=== PATIENT | female | born 1985 | race Caucasian/White ===

== ENCOUNTER → 2017-08-11 16:30 | Outpatient (CLI) | payer OTHER, SELFPAY ==
[2017-08-11 17:39] LABS: Absolute Neutrophil Count 6.7 X10^3/uL (2.0-7.7); Basophil# 0.01 X10^3/uL; Basophil% 0.1 % (0-1); Eosinophil# 0.12 X10^3/uL; Eosinophils% 1.3 % (0-5); Hematocrit 40.3 % (37-47); Hemoglobin 13.9 g/dl (12.0-15.0); Mean Corp Hgb Conc 34.5 g/gl (32-36); Mean Corpuscular Hgb 32.4 pg (27.0-32.0); Mean Corpuscular Volume 93.9 fL (81-99); Mean Platelet Vol. 11.6 fl (6.2-12.0); Monocyte# 0.78 X10^3/uL; Monocyte% 8.2 % (0-10); Neutrophil # 6.66 X10^3/uL (2.7-7.7); Neutrophil % 70.2 % (47-70); Platelet Count 167 K/mm3 (150-450); RBC Distribution Width CV 12.5 % (11.6-14.6); RBC Distribution Width SD 41.9 fl (35.1-43.9); Red Blood Count 4.29 M/mm3 (4.2-5.4); White Blood Count 9.5 K/mm3 (4.4-11.0)
[2017-08-11 17:40] LABS: POSITIVE COUNT NO; POSITIVE DIFFERENTIAL NO; POSITIVE MORPHOLOGY NO
[2017-08-11 18:08] LABS: ALB/GLOB Ratio 1.2 RATIO (0.9-2.4); AST(SGOT) 21 U/L (15-37); Alanine Aminotransfer ALT/SGPT 42 U/L (13-56); Albumin, Serum 4.2 g/dL (3.2-5.0); Alkaline Phosphatase 76 U/L (45-117); Anion Gap 6 (5-15); BUN 11 mg/dL (7-18); BUN/Creat Ratio 17.9 RATIO (10-20); Calcium,Total 9.4 mg/dL (8.5-10.1); Chloride 104 mmol/L (98-107); Creatinine, Serum 0.62 mg/dL (0.55-1.02); EST Glomerular Filtration Rate 119 mL/min (>60); Est Glom Filt Rate - Afr Amer 143 mL/min (>60); Globulin 3.5 g/dL (2.2-4.2); Glucose 70 mg/dL (74-106); Potassium 3.6 mmol/L (3.5-5.1); Protein, Total 7.7 g/dL (6.4-8.2); Sodium Level 138 mmol/L (136-145)
[2017-08-11 18:48] LABS: HIV - WCH Non-Reactive (Nonreactive); Rubella IgG 302.9 IU/mL
[2017-08-13 03:15] LABS: Rapid Plasmin Reagin (RPR) NONREACTIVE (NONREACTIVE)
[2017-08-14 04:10] LABS: HCV Quant. RNA PCR HCV Not Detected IU/mL (.)
[2017-08-15 11:38] LABS: HEPATITIS B SURFACE AG Negative (Negative)
== END ==
PROVIDERS: Visit Provider Obstetrics & Gynecology
DX: O09.90 Supervision of high risk pregnancy, unspecified, unspecified trimester (principal); Z3A.00 Weeks of gestation of pregnancy not specified
CPT/HCPCS: 80053; 85025; 86592; 86703; 86762; 86850; 86900; 87340; 87522

== ENCOUNTER → 2017-08-11 19:16 | Outpatient (CLI) | payer OTHER, SELFPAY ==
[2017-08-11 21:17] LABS: Chlamydia Trachomatis by PCR Negative (Negative); Neisserai gonorrhoeae by PCR Negative (Negative); Probe Check PASS; Sample Adequacy Control PASS; Specimen Processing Control PASS
== END ==
PROVIDERS: Visit Provider Obstetrics & Gynecology
DX: O09.90 Supervision of high risk pregnancy, unspecified, unspecified trimester (principal); Z3A.00 Weeks of gestation of pregnancy not specified
CPT/HCPCS: 87086; 87491; 87591

== ENCOUNTER → 2017-08-19 18:44 | Outpatient (CLI) | payer OTHER, SELFPAY ==
[2017-08-19 18:32] VITALS: BP 141/94; PULSE 65; RESP 16; TEMP 36.7; O2SAT 100; BMI 24.3
[2017-08-19 20:06] LABS: hCG Titer Quant., Serum 65172 mIU/mL (<9 non-preg)
== END ==
PROVIDERS: Nurse Practitioner Women's Health; Visit Provider Obstetrics & Gynecology
DX: O20.0 Threatened abortion (principal); Z3A.00 Weeks of gestation of pregnancy not specified
CPT/HCPCS: 36415; 84702

== ENCOUNTER → 2017-09-07 16:16 | Outpatient (CLI) | payer OTHER, SELFPAY ==
--- NOTE | 2017-09-07 16:17 | EKG12_ITS ---
Test Reason : HTN Blood Pressure : / mmHG Vent. Rate : 059 BPM Atrial Rate : 059 BPM P-R Int : 146 ms QRS Dur : 076 ms QT Int : 400 ms P-R-T Axes : 056 016 022 degrees QTc Int : 396 ms Sinus bradycardia with sinus arrhythmia Otherwise normal ECG Confirmed by LAZARA SALINAS, GADIEL ([id number]), science editor WHIT VINES ([id number]) on 09/10/2017 12:56:20 PM Referred By: Chiquita Vela Confirmed By:GADIEL HAILE MD
== END ==
PROVIDERS: Visit Provider Obstetrics & Gynecology
DX: O16.9 Unspecified maternal hypertension, unspecified trimester (principal)
CPT/HCPCS: 93005

== ENCOUNTER → 2017-09-07 16:40 | Outpatient (CLI) | payer OTHER, SELFPAY ==
[2017-09-07 17:07] LABS: Protein, Urine (Random) 11.9 mg/dL (<11.9); Protein:Creat Ratio 113 mg/g CRE (0-200)
== END ==
PROVIDERS: Visit Provider Obstetrics & Gynecology
DX: O16.9 Unspecified maternal hypertension, unspecified trimester (principal)
CPT/HCPCS: 82570; 84156

== ENCOUNTER → 2017-10-06 17:11 | Outpatient (CLI) | payer OTHER, SELFPAY ==
[2017-10-06 17:39] LABS: Protein, Urine (Random) < 6.0 mg/dL (<11.9); Protein:Creat Ratio 93 mg/g CRE (0-200)
== END ==
PROVIDERS: Visit Provider Obstetrics & Gynecology
DX: O16.9 Unspecified maternal hypertension, unspecified trimester (principal)
CPT/HCPCS: 82570; 84156

== ENCOUNTER → 2017-10-15 13:38 | Outpatient (CLI) | payer OTHER, SELFPAY | PROVIDERS: Visit Provider Obstetrics & Gynecology | DX: Z34.90 Encounter for supervision of normal pregnancy, unspecified, unspecified trimester (principal) ==

== ENCOUNTER → 2017-11-02 11:57 | Outpatient (CLI) | payer OTHER, SELFPAY ==
--- NOTE | 2017-11-02 12:01 | US_ITS ---
STUDY: SECOND AND THIRD TRIMESTER OBSTETRICAL ULTRASOUND REASON FOR EXAM: Female, 32 years old. Abdominal pain LMP: June 19, 2017 TECHNIQUE: Transabdominal PRIOR ULTRASOUND: None. FINDINGS: There is a single intrauterine fetus. The fetus is in a breech presentation. There is demonstrated cardiac activity with a heart rate of 134 bpm. There is a normal amniotic fluid volume. The largest amniotic fluid pocket measures 4.7 cm. The placenta is posterior in location and is not low lying. There are Grade 1 placental changes. The cervix measures 3.5 in length. The bilateral adnexal regions are normal. BIOMETRY: BPD: 4.43 cm: 19 weeks, 3 days HC: 16.82 cm: 19 weeks, 4 days AC: 14.74 cm: 20 weeks, 1 days FL: 3.13 cm: 19 weeks, 6 days CI: 77 FL/BPD: 71 FL/AC: 21 HC/AC: 1.14 age by current US: 19 weeks, 6 days. MANJU by current US: 03/23/2018. Estimated weight: 315 grams, +/- 46 grams, 69 %. Age by LMP: 19 weeks, 3 days. MANJU by LMP: 03/26/2018. ANATOMY: Gender: Female Cranium: Normal lateral ventricles. Normal choroid plexus. Normal cerebellum. Normal cisterna magna. Normal face, nose and lips. Chest: Normal 4-chamber heart. Abdomen/Pelvis: Normal diaphragm. Normal stomach. Normal abdominal wall. Normal cord insertion. Normal 3 vessel cord. Normal kidneys. Normal bladder. Spine: Normal cervical spine. Normal thoracic spine. Normal lumbar spine. Normal sacrum. Extremities: Normal bilateral upper extremities. Normal bilateral lower extremities. US/OB Anatomy Scan IMPRESSION: There is a single intrauterine fetus. The fetus is in a breech presentation. There is demonstrated cardiac activity with a heart rate of 134 bpm. There is a normal amniotic fluid volume. age by current US: 19 weeks, 6 days. MANJU by current US: 03/23/2018 Electronically Signed: Mateusz Barkley MD at 7:15 EDT , Service support ,
== END ==
PROVIDERS: Visit Provider Nurse Practitioner Women's Health
DX: R10.9 Unspecified abdominal pain (principal)
CPT/HCPCS: 76805

== ENCOUNTER → 2017-12-27 16:37 | Outpatient (CLI) | payer OTHER, SELFPAY ==
[2017-12-27 17:38] LABS: Absolute Lymphocyte Count 1.91 X10^3/ul (0.83-4.51); Absolute Neutrophil Count 9.8 X10^3/uL (2.0-7.7); Basophil# 0.01 X10^3/uL; Basophil% 0.1 % (0-1); Eosinophil# 0.17 X10^3/uL; Eosinophils% 1.3 % (0-5); Hematocrit 32.9 % (37-47); Hemoglobin 11.4 g/dl (12.0-15.0); Lymphocyte # 1.91 X10^3/ul (4.0); Lymphocyte % 14.9 % (19-41); Mean Corp Hgb Conc 34.7 g/gl (32-36); Mean Corpuscular Hgb 34.1 pg (27.0-32.0); Mean Corpuscular Volume 98.5 fL (81-99); Mean Platelet Vol. 10.8 fl (6.2-12.0); Monocyte# 0.84 X10^3/uL; Monocyte% 6.6 % (0-10); Neutrophil # 9.84 X10^3/uL (2.7-7.7); Neutrophil % 76.7 % (47-70); Platelet Count 129 K/mm3 (150-450); RBC Distribution Width CV 12.9 % (11.6-14.6); RBC Distribution Width SD 44.7 fl (35.1-43.9); Red Blood Count 3.34 M/mm3 (4.2-5.4); White Blood Count 12.8 K/mm3 (4.4-11.0)
[2017-12-27 17:44] LABS: POSITIVE COUNT NO; POSITIVE DIFFERENTIAL NO; POSITIVE MORPHOLOGY NO
[2017-12-27 17:45] LABS: Glucose Challenge Gest 1H 50g 115 mg/dL (70-140)
== END ==
PROVIDERS: Visit Provider Obstetrics & Gynecology
DX: O09.90 Supervision of high risk pregnancy, unspecified, unspecified trimester (principal); Z3A.00 Weeks of gestation of pregnancy not specified
CPT/HCPCS: 36415; 82950; 85025

== ENCOUNTER → 2018-01-05 13:43 | Outpatient (CLI) | payer OTHER, SELFPAY | PROVIDERS: Visit Provider Nurse Practitioner Women's Health | DX: O16.1 Unspecified maternal hypertension, first trimester (principal); Z3A.00 Weeks of gestation of pregnancy not specified | CPT/HCPCS: 76816 ==

== ENCOUNTER → 2018-02-11 14:42 | Outpatient (CLI) | payer OTHER, SELFPAY ==
--- NOTE | 2018-02-11 14:44 | US_ITS ---
STUDY: SECOND AND THIRD TRIMESTER OBSTETRICAL ULTRASOUND - LIMITED REASON FOR EXAM: Female, 32 years old. growth. LMP: 06/19/2017 PRIOR ULTRASOUND: 01/05/2018. TECHNIQUE: Transabdominal ultrasound evaluation was performed. FINDINGS: There is a single intrauterine fetus. The fetus is in a cephalic presentation. There is demonstrated cardiac activity with a heart rate of 132 bpm. There is a normal amniotic fluid volume. The largest amniotic fluid pocket measures 4.4 cm. The amniotic fluid index (JORGE) is 9.2 cm. The placenta is posterior in location and is not low lying. There are Grade 2 placental changes. The cervix measures 3.1 cm cm in length. BIOMETRY: BPD: 8.4: 34 weeks, 0 days HC: 30.6: 34 weeks, 1 days AC: 30.3: 34 weeks, 3 days FL: 6.6: 34 weeks, 0 days Age by LMP: 33 weeks, 6 days. MANJU by LMP: 03/26/2018. age by prior US: 34 weeks, 4 days. MANJU by prior US: 03/21/2018. age by current US: 34 weeks, 1 days. MANJU by current US: 03/24/2018. Estimated weight: 2357 grams, +/- 344 grams, 51 percentile. Gender: US/OB Limited With Biometrics IMPRESSION: Single live fetus in a vertex presentation. survey not performed on this exam. Placenta is grade 2 and is not low-lying. Cervix is closed. age by current US: 34 weeks, 1 days. MANJU by current US: 03/24/2018. Estimated weight: 2357 grams, +/- 344 grams, 51 percentile. Electronically Signed: Matthew Zhao MD at 16:05 EDT , Service support ,
== END ==
PROVIDERS: Visit Provider Nurse Practitioner Women's Health
DX: O09.90 Supervision of high risk pregnancy, unspecified, unspecified trimester (principal); O16.9 Unspecified maternal hypertension, unspecified trimester; Z36.9 Encounter for antenatal screening, unspecified; O99.340 Other mental disorders complicating pregnancy, unspecified trimester; F41.9 Anxiety disorder, unspecified; Z3A.00 Weeks of gestation of pregnancy not specified
CPT/HCPCS: 76816

== ENCOUNTER → 2018-02-21 18:26 | Outpatient (CLI) | payer OTHER, SELFPAY ==
[2018-02-21 20:30] LABS: Group B Strep DNA By PCR Negative (Negative); Internal Control PASS; Probe Check PASS; Specimen Processing Control PASS
== END ==
PROVIDERS: Referring Provider Obstetrics & Gynecology; Visit Provider Obstetrics & Gynecology
DX: O09.90 Supervision of high risk pregnancy, unspecified, unspecified trimester (principal)
CPT/HCPCS: 87081; 87653

== ENCOUNTER 2018-02-23 19:00 | Outpatient (CLI) | payer OTHER, SELFPAY ==
[2018-02-23 19:43] VITALS: BMI 26.3
--- NOTE | 2018-02-28 21:07 | OB.TRI.NOTE ---
- Problem List (1) Threatened premature labor Status: Acute History of Present Illness Date of Service: 02/23/18 Was patient seen by the physician?: No Reason For Visit: SPOTTING History of Present Illness: co spotting and some contractions Allergies amlodipine [From Norvasc] Allergy (Intermediate, Verified 02/28/18 16:13) legs swelling hctz Allergy (Intermediate, Uncoded 02/28/18 16:13) liver reaction - Pertinent Past Medical History Medical History: Past Medical History (Last Reviewed 02/28/18 @ 16:13 by Estela Mckeon) High blood pressure (Resolved) Surgical History: Past Surgical History (Last Reviewed 02/28/18 @ 16:13 by Estela Mckeon) History of foot surgery History of surgical removal of ganglion cyst History of wisdom tooth extraction NST - FHR Rate Baby A Baseline: 130 Variability:: Moderate Accelerations:: 15 x 15 Decelerations:: None NST Reactive:: Yes FHR Category:: Category I Uterine Activity:: irregular Impression/Plan Vaginal bleeding, false labor. No cervical change and no regular contractions. DC home labor precautions
== END 2018-02-23 21:15 | disposition home or self-care (01) ==
LOC: WPOUT 19:28 → WP 19:29
PROVIDERS: Referring Provider Obstetrics & Gynecology; Visit Provider Obstetrics & Gynecology
DX: O47.9 False labor, unspecified (principal); O46.90 Antepartum hemorrhage, unspecified, unspecified trimester; Z3A.00 Weeks of gestation of pregnancy not specified
CPT/HCPCS: 59025; 59050; 99218; G0378

== ENCOUNTER → 2018-03-04 14:48 | Outpatient (CLI) | payer OTHER, SELFPAY ==
--- NOTE | 2018-03-04 14:50 | US_ITS ---
STUDY: SECOND AND THIRD TRIMESTER OBSTETRICAL ULTRASOUND - LIMITED REASON FOR EXAM: Female, 32 years old. Growth LMP: June 19, 2017 PRIOR ULTRASOUND: 02/11/2018 TECHNIQUE: Transabdominal # of Images: 58 TECHNICAL QUALITY: Adequate. FINDINGS: There is a single intrauterine fetus. The fetus is in a cephalic presentation. There is demonstrated cardiac activity with a heart rate of 139 bpm. There is a normal amniotic fluid volume. The largest amniotic fluid pocket measures 5.14 cm. The amniotic fluid index (JORGE) is 11.03 cm. The placenta is fundal in location. There are Grade 2 placental changes. The cervix is not seen. The head is low lying. BIOMETRY: BPD: 8.62 cm: 34 weeks, 6 days HC: 32.7: 37 weeks, 1 days AC: 32.62: 36 weeks, 4 days FL: 7.34: 37 weeks, 4 days Age by LMP: 36 weeks, 6 days. MANJU by LMP: 03/26/2018. age by prior US: 37 weeks, 1 days. MANJU by prior US: 03/24/2018. age by current US: 36 weeks, 4 days. MANJU by current US: 03/28/2018. Estimated weight: 2995 grams, +/- 437 grams, 50 percentile. US/OB Limited With Biometrics IMPRESSION: Intrauterine gestation with sonographic age of 36 weeks 4 days. head is low lying. Cervix is not visible. Positive cardiac activity. Normal amniotic fluid volume. Normal placenta. Electronically Signed: Warren Bryan MD at 4:58 EDT Tel , Service support ,
== END ==
PROVIDERS: Referring Provider Obstetrics & Gynecology; Visit Provider Obstetrics & Gynecology
DX: O16.9 Unspecified maternal hypertension, unspecified trimester (principal); Z3A.00 Weeks of gestation of pregnancy not specified
CPT/HCPCS: 76816

== ENCOUNTER 2018-03-07 16:25 | Inpatient (IN) | payer OTHER, SELFPAY ==
[2018-03-07] MEDS: Lactated Ringers 1,000 ML 50 ML IV ×2 (16:50→20:11)
[2018-03-07 16:59] VITALS: BMI 26.6
[2018-03-07 17:05] LABS: Hematocrit 35.1 % (37-47); Hemoglobin 11.8 g/dl (12.0-15.0); Mean Corp Hgb Conc 33.6 g/gl (32-36); Mean Platelet Vol. 11.6 fl (6.2-12.0); Platelet Count 149 K/mm3 (150-450); RBC Distribution Width CV 13.5 % (11.6-14.6); RBC Distribution Width SD 48.4 fl (35.1-43.9); Red Blood Count 3.58 M/mm3 (4.2-5.4); White Blood Count 10.9 K/mm3 (4.4-11.0)
[2018-03-07 17:24] LABS: Scan Indicated on CBC? Y/N NO
[2018-03-07] MEDS: Oxytocin 30 units/NS 500 ml 30 UNITS/500 ML IV.SOLN IV (17:30)
[2018-03-07] MEDS: Mag Hydrox/Al Hydrox/Simeth 30 ML UDC PO (19:28)
--- NOTE | 2018-03-08 00:26 | HP.PCM_ITS ---
- Problem List (1) Oligohydramnios Status: Acute (2) Status: Acute Qualifiers: Comment: sequential screen negative. carrier screening declined. anatomy scan normal. growth us ordered 36 weeks. (3) Anxiety during Status: Acute Comment: celexa, encouraged counseling (4) Hypertension affecting Status: Acute Qualifiers: Comment: baseline labs/ekg nl, baby asa at 12 weeks, growth q4 after 28 wks, weekly nst/madhu 32 weeks on, deliver 38 (5) Supervision of high-risk Status: Acute Qualifiers: Comment: PRR MANJU 03/26/18 Girl Viviane :Debi History Date of Admission: 03/07/18 Final MANJU: 03/26/18 Gestational age: 37 Weeks and 3 Days History of this : This is a 32 year-old, , at 37 weeks gestational age presents for IOL oligohydramnios. she has had a complicated by chtn, and then today her fluid level was found to be 5.5 cm in the office. she denies any lof, vb and admits good fm with no regular ctx. Medical History: Medical History (Last Reviewed 03/07/18 @ 15:25 by Gini Greenwood) High blood pressure (Resolved) I10 Surgical History: Surgical History (Last Reviewed 03/07/18 @ 15:25 by Gini Greenwood) History of foot surgery Z98.890 History of surgical removal of ganglion cyst Z98.890 History of wisdom tooth extraction K08.499 Allergies amlodipine [From Norvasc] Allergy (Intermediate, Verified 03/07/18 18:46) legs swelling hctz Allergy (Intermediate, Uncoded 02/28/18 16:13) liver reaction Home Medications: Home Medications nifedipine ER 90 mg tablet,extended release 24 hr 90 mg PO QDAY 08/11/17 vitamin,calcium,jzfpbaqy-qadl-gnflt acid tablet 1 tab PO QDAY 08/11/17 aspirin 81 mg tablet,delayed release 81 mg PO QDAY 11/02/17 Citalopram [Celexa] 20 mg PO QDAY 03/07/18 Smoking Status: Never smoker Alcohol: None Number of Fetus(es): 1 Heart Tracins moderate variability reactive no decels cat I TOCO Analysis: no regular prior to IOL, now 2-4 minutes, coupling History Past Pregnancies: Past Pregnancies Delivery Date Name GA/Weeks Outcome Route Weight Infant Gender Labor Length Anesthesia Delivery Location Provider FOB Labs: Mom's Labs & Results 03/07/18 03/07/18 16:50 16:50 WBC 10.9 RBC 3.58 L Hgb 11.8 L Hct 35.1 L MCV 98.0 MCH 33.0 H MCHC 33.6 RDW 13.5 RDW Differential 48.4 H Plt Count 149 L MPV 11.6 Blood Type AB POSITIVE Antibody Screen NEGATIVE Course Did the patient receive Yes care? Labs Blood Type: AB RH: POSITIVE RPR/VDRL/Syphilis Nonreactive Rubella status Immune HbSAg Negative Date Done: 08/11/17 Chlamydia Negative Gonorrhea Negative HIV/AIDS Non-Reactive Group B Strep: Negative Current Obstetrical History Gestational Diabetes No Incompetent Cervix No Infertility No IUGR No Macrosomia No Hypertension/Pre-eclampsia Yes Placenta Previa/Abruption No PTL/PROM No Uterine anomaly No Oligohydramnios Yes Polyhydramnios No Multiple gestation No Past Medical History Asthma No Diabetes No Hypertension Yes Heart disease No Mitral valve prolapse No Neurologic/Seizure disorder/ No Migraines Kidney disease No Liver disease No Varicosities No Clotting disorders/Hx of DVT No Thyroid Dysfunction No Other medical diseases No Psychiatric disorders Yes: ANXIETY Major trauma No Abnormal PAP smear No Sleep apnea No Mammogram in the last 2 years No Medications Taken During Dose/Freq.: [celexA] 20mg daily Dose/Freq.: [procardia] 90mg daily Last Date/Time of Medication 03/07 0800 Taken: [celexA] Last Date/Time of Medication 03/07/18 0800 Taken: [procardia] Reason for taking medication [ anxiety celexA] Reason for taking medication [ htn procardia] Social History Marital Status: Alleged father debi Oconnor Smoking No Smoking Status Never smoker Expected Delivery Method: Spontaneous Vaginal Review of Systems Constitutional: Denies: Fever, Malaise Eyes: Denies: Blurred vision, Vision Change HEENT: Denies: Head Aches, Visual Changes Cardiovascular: Denies: Chest Pain, Palpitations Respiratory: Denies: Cough, Shortness of Breath, Wheezing Gastrointestinal: Denies: Abdominal Pain, Diarrhea, Nausea, Vomiting Genitourinary: Denies: Dysuria, Hematuria Musculoskeletal: Denies: Joint Pain, Muscle pain Skin: Denies: Lesions, Rash Neurological: Denies: Blurred vision, Focal weakness, Headaches Psychiatric: Denies: Anxiety, Depression Endocrine: Denies: Heat/ Cold Intolerance Hematologic/ Lymphatic: Denies: Easy Bruising, Easy Bleeding Physical Exam General: Alert, Cooperative, No apparent distress HEENT: Atraumatic, Normocephalic. Negative for: Thyromegaly, Lymphadenopathy Cardiovascular: Regular rate Lungs: Normal air movement Abdomen: Soft, Non Tender, Gravid Neurological: Deep Tendon Reflexes 2+/4 and Symmetrical, Neuro grossly intact. Negative for: Clonus SHEEP HERDER: Normal external genitalia. Negative for: Vulvar lesions Estimated gestational size: Appropriate for gestational size Presentation: Cephalic Cervix Dilation (cm): 2.5 Station: -1 Effacement (%): 70 Assessment/Plan All Active Problems (Last Reviewed 03/07/18 @ 15:25 by Gini Greenwood) Threatened premature labor (Acute) Oligohydramnios (Acute) (Acute) Anxiety during (Acute) Hypertension affecting (Acute) Supervision of high-risk (Acute) screening encounter (Resolved) High blood pressure (Resolved) This is a 32 year-old, at 37 weeks gestational age with oligohydramnios Patient presents IOL- pitocin, arom clear fluid Pain management:plans epidural GBS neg Management of any complications: chtn continue home meds I have reviewed the [facility] and made any clinically relevant updates.
[2018-03-08] MEDS: Oxytocin 30 units/NS 500 ml 30 UNITS/500 ML IV.SOLN IV (00:44)
[2018-03-08] MEDS: Ondansetron 4 MG/2 ML Vial IV (02:02)
[2018-03-08] MEDS: fentaNYL-bupivacaine (epidural) 100 ML BAG EPIDURAL (02:52)
[2018-03-08] MEDS: Lactated Ringers 1,000 ML 50 ML IV (03:36)
[2018-03-08] MEDS: Oxytocin 30 units/NS 500 ml 30 UNITS/500 ML IV.SOLN 334 UNITS IV (11:52)
--- NOTE | 2018-03-08 12:05 | PCM.OB.VAG ---
- Problem List (1) Oligohydramnios Status: Acute (2) Status: Acute Qualifiers: Comment: sequential screen negative. carrier screening declined. anatomy scan normal. growth us ordered 36 weeks. (3) Anxiety during Status: Acute Comment: celexa, encouraged counseling (4) Hypertension affecting Status: Acute Qualifiers: Comment: baseline labs/ekg nl, baby asa at 12 weeks, growth q4 after 28 wks, weekly nst/madhu 32 weeks on, deliver 38 (5) Supervision of high-risk Status: Acute Qualifiers: Comment: PRR MANJU 03/26/18 Jm Pan :Ciro Vaginal Delivery Maternal Presentation: Medically Indicated Induction Section of labor oligohydramnios 5 cm at 37 weeks 2 days Method of Induction: Pitocin Amniotic Membrane Rupture Type: Artificial Amniotic Fluid Description: Clear Final MANJU: 03/26/18 Gestational age: 37 Weeks and 3 Days Date of Procedure: 03/08/18 Pre-Operative Diagnosis: Induction of labor oligo Post-Operative Diagnosis: Same Surgery/ Procedure Performed: Spontaneous Vaginal Delivery Type of Anesthesia: Epidural, Local with 1% lidocaine Description of Procedure: Patient began pushing and delivered the head in the RODERICK presentation. The head was delivered atraumatically . The anterior and posterior shoulders delivered without complication followed by the rest of the and the infant was placed on the maternal abdomen. Delayed cord clamping was employed for approximately 60 seconds. Cord was clamped and cut and gentle traction was applied to the cord and the placenta delivered spontaneously immediately following it was noted to be intact with three-vessel cord. The perineum and vagina were inspected and noted to have a small first-degree perineal laceration that was repaired in the usual fashion with 3-0 Vicryl repeat. EBL was 200 cc. Patient and tolerated delivery well. Presentation: RODERICK Placental Delivery Description: Spontaneous Placenta Disposition: [facility] Cord Entanglement: None Estimated Blood Loss: 200 Infant A gender: Female Episiotomy Description: None Laceration: Perineal Extension/lac, 1st degree Medications given after delivery: IV Pitocin Complications: None
[2018-03-08] MEDS: Acetaminophen 500 MG Tablet 1000 MG PO ×2 (12:39→20:29)
[2018-03-08] MEDS: Oxytocin 30 units/NS 500 ml 30 UNITS/500 ML IV.SOLN 167 UNITS IV (12:52)
[2018-03-08] MEDS: Naproxen 250 MG Tablet PO ×2 (14:03→22:10)
[2018-03-08 17:00] VITALS: BP 107/64; PULSE 68; RESP 18; TEMP 37.3
[2018-03-08 20:30] VITALS: BP 115/80; PULSE 63; RESP 18; TEMP 37.1; O2SAT 95
[2018-03-08 23:30] VITALS: BP 103/59; PULSE 69; RESP 17; TEMP 36.9
[2018-03-09 04:40] VITALS: BP 115/78; PULSE 67; RESP 17; TEMP 36.9
[2018-03-09] MEDS: Acetaminophen 500 MG Tablet 1000 MG PO ×2 (05:46→15:23)
--- NOTE | 2018-03-09 07:51 | PCM.PN.OB ---
Patient Problems: Active and Suspected Problems (Last Reviewed 03/07/18 @ 15:25 by Gini Greenwood) Oligohydramnios (Acute) Subjective: Doing well. No CP, SOB. - Physical Exam General: Alert, Oriented x3 Abdomen: Soft, Non Tender, - - FF below U Vital Signs Temp Pulse Resp BP Pulse Ox 98.4 F 67 17 115/78 95 03/09/18 04:40 03/09/18 04:40 03/09/18 04:40 03/09/18 04:40 03/08/18 20:30 Oxygen Delivery Method Room Air Weight: 191 lb 6.4 oz Body Mass Index (BMI) 26.6 Intake and Output for Last 24 Hours 03/07/18 03/08/18 03/09/18 23:59 23:59 23:59 Intake Total 4405 / 4405 Output Total 2400 / 2400 Balance 2004 Medical Necessity - Tobacco Use Smoking Status: Never smoker Assessment/Plan All Active Problems (Last Reviewed 03/07/18 @ 15:25 by Gini Greenwood) Threatened premature labor (Acute) Oligohydramnios (Acute) (Acute) Anxiety during (Acute) Hypertension affecting (Acute) Supervision of high-risk (Acute) screening encounter (Resolved) High blood pressure (Resolved) PPD #1: Routine care. Pain controlled.
[2018-03-09 08:00] VITALS: BP 109/73; PULSE 61; RESP 20; TEMP 37.3
[2018-03-09] MEDS: Naproxen 250 MG Tablet PO ×2 (08:01→16:44)
[2018-03-09] MEDS: Citalopram 20 MG Tablet PO (10:46)
[2018-03-09] MEDS: Prenatal Vits Tablet 1 TABLET PO (10:47)
[2018-03-09] MEDS: NIFEdipine 90 MG Tablet PO (10:47)
[2018-03-09 13:20] VITALS: BP 117/74; PULSE 78; RESP 18; TEMP 36.8; O2SAT 99
[2018-03-09 20:40] VITALS: BP 113/74; PULSE 63; RESP 16; TEMP 36.8; O2SAT 97
--- NOTE | 2018-03-09 22:27 | PCM.DCVAG ---
Discharge Diet: No Restrictions Discharge Activity: Return to Normal Activity, May not drive while taking narcotic pain medications., May Shower May resume sexual activity in: 4-6 weeks Call your doctor if your incision/area has: Continuous Slow Oozing, Sudden Increased Bleeding, Increased Pain/ Swelling, Increased Redness, Foul Smelling Discharge Additional Instructions: If you experience any of the following, contact your healthcare provider. Bleeding that soaks a pad every hour for 2 hours Fever 100.4 or higher Unrelieved incision or abdominal pain Swelling, redness, discharge or bleeding from your incision or episiotomy site Your incision begins to separate Problems urinating (including inability to urinate or burning while urinating). Visual changes Severe headache Flu-like symptoms Pain or redness in one of both of your breasts Pain, warmth, tenderness or swelling in your legs, especially the calf area Frequent nausea and vomiting Symptoms of depression or anxiety If you experience any of the following, call 911 or go to the nearest Emergency Room. Chest pain Problems breathing Seizure activity Partial or complete paralysis of a body part, slurred speech, weakness or drooping of the face, or a sudden inability to walk or hold your balance Allergies/Adverse Reactions: Allergies amlodipine [From Norvas] Allergy (Intermediate, Verified 03/07/18 18:46) legs swelling hctz Allergy (Intermediate, Uncoded 02/28/18 16:13) liver reaction Medications to take at Discharge nifedipine ER 90 mg tablet,extended release 24 hr 90 mg PO QDAY 08/11/17 vitamin,calcium,xwegkrvi-fgda-lbsri acid tablet 1 tab PO QDAY 08/11/17 aspirin 81 mg tablet,delayed release 81 mg PO QDAY 11/02/17 Citalopram [Celexa] 20 mg PO QDAY 03/07/18 Naproxen [Naprosyn] 250 - 500 mg PO Q8H PRN PRN #30 tablet 03/09/18 The following prescriptions were given: Naproxen [Naprosyn] 250 - 500 mg PO Q8H PRN PRN #30 tablet PRN Reason: MILD PAIN Please Follow Up With: Chiquita Vela MD - [phone] When: Call to make an appointment with your doctor in 6 weeks. If you had elevated Blood pressure or 4th degree laceration you will need to be seen in 2 weeks. Primary Care Physician: [facility],Out of [Primary Care Provider] - Test Results: Test results from this visit will be discussed in further detail at your follow-up appointment, if applicable.
--- NOTE | 2018-03-09 22:28 | DCINST_ITS ---
Discharge Diet: No Restrictions Discharge Activity: Return to Normal Activity, May not drive while taking narcotic pain medications., May Shower May resume sexual activity in: 4-6 weeks Call your doctor if your incision/area has: Continuous Slow Oozing, Sudden Increased Bleeding, Increased Pain/ Swelling, Increased Redness, Foul Smelling Discharge Additional Instructions: If you experience any of the following, contact your healthcare provider. * Bleeding that soaks a pad every hour for 2 hours * Fever 100.4 or higher * Unrelieved incision or abdominal pain * Swelling, redness, discharge or bleeding from your incision or episiotomy site * Your incision begins to separate * Problems urinating (including inability to urinate or burning while urinating). * Visual changes * Severe headache * Flu-like symptoms * Pain or redness in one of both of your breasts * Pain, warmth, tenderness or swelling in your legs, especially the calf area * Frequent nausea and vomiting * Symptoms of depression or anxiety If you experience any of the following, call 911 or go to the nearest Emergency Room. * Chest pain * Problems breathing * Seizure activity * Partial or complete paralysis of a body part, slurred speech, weakness or drooping of the face, or a sudden inability to walk or hold your balance Allergies/Adverse Reactions: Allergies amlodipine [From [facility]] Allergy (Intermediate, Verified 03/07/18 18:46) legs swelling hctz Allergy (Intermediate, Uncoded 02/28/18 16:13) liver reaction Medications to take at Discharge nifedipine ER 90 mg tablet,extended release 24 hr 90 mg PO QDAY 08/11/17 vitamin,calcium,konomdya-uexr-dmiax acid tablet 1 tab PO QDAY 08/11/17 aspirin 81 mg tablet,delayed release 81 mg PO QDAY 11/02/17 Citalopram [Celexa] 20 mg PO QDAY 03/07/18 Naproxen [Naprosyn] 250 - 500 mg PO Q8H PRN PRN #30 tablet 03/09/18 The following prescriptions were given: Naproxen [Naprosyn] 250 - 500 mg PO Q8H PRN PRN #30 tablet PRN Reason: MILD PAIN Please Follow Up With: Chiquita Vela MD - [phone] When: Call to make an appointment with your doctor in 6 weeks. If you had elevated Blood pressure or 4th degree laceration you will need to be seen in 2 weeks. Primary Care Physician: Hernan Wilkins,Out of [Primary Care Provider] - Test Results: Test results from this visit will be discussed in further detail at your follow- up appointment, if applicable.
[2018-03-10 01:30] VITALS: BP 120/72; PULSE 65; RESP 16; TEMP 36.9; O2SAT 96
[2018-03-10 08:30] VITALS: BP 117/72; PULSE 55; RESP 18; TEMP 37.4
[2018-03-10] MEDS: Citalopram 20 MG Tablet PO (09:08)
[2018-03-10] MEDS: Naproxen 250 MG Tablet PO (09:08)
[2018-03-10] MEDS: Senna/Docusate Sodium 1 Tablet PO (09:09)
[2018-03-10] MEDS: NIFEdipine 90 MG Tablet PO (09:10)
== END 2018-03-10 13:40 | disposition home or self-care (01) | DRG 807 ==
PROVIDERS: Admitting Provider Obstetrics & Gynecology; Referring Provider Obstetrics & Gynecology; Visit Provider Obstetrics & Gynecology
DX: O41.03X0 Oligohydramnios, third trimester, not applicable or unspecified (principal); Z37.0 Single live birth; O70.0 First degree perineal laceration during delivery; O99.343 Other mental disorders complicating pregnancy, third trimester; F41.9 Anxiety disorder, unspecified; Z3A.37 37 weeks gestation of pregnancy
CPT/HCPCS: 59025; 59050; 85027; 86850; 86900; 99218; J7120; G0378; J2405

== ENCOUNTER 2018-03-12 10:10 | Outpatient (CLI) | payer OTHER, SELFPAY | END 2018-03-12 11:10 | disposition home or self-care (01) | LOC: WPOUT 10:32 → WP 10:33 | PROVIDERS: Referring Provider Obstetrics & Gynecology; Visit Provider Obstetrics & Gynecology | DX: Z39.1 Encounter for care and examination of lactating mother (principal) | CPT/HCPCS: 96152 ==

== ENCOUNTER → 2018-04-19 21:58 | Outpatient (CLI) | payer OTHER, SELFPAY ==
[2018-04-19 09:09] VITALS: BMI 24.1
[2018-04-24 09:51] LABS: HPV APTIMA, High Risk Negative (Negative)
== END ==
PROVIDERS: Visit Provider Obstetrics & Gynecology
DX: Z12.4 Encounter for screening for malignant neoplasm of cervix (principal)
CPT/HCPCS: 87624; 88175; G0145

== ENCOUNTER → 2018-04-20 07:51 | Outpatient (CLI) | payer OTHER, SELFPAY ==
[2018-04-19 09:09] VITALS: BMI 24.1
== END ==
PROVIDERS: Referring Provider Obstetrics & Gynecology; Visit Provider Obstetrics & Gynecology
DX: Z12.4 Encounter for screening for malignant neoplasm of cervix (principal)

== ENCOUNTER → 2019-05-22 17:43 | Outpatient (CLI) | payer SELFPAY ==
[2019-05-22 17:43] VITALS: BMI 24.1
[2019-05-22 20:09] LABS: Chlamydia Trachomatis by PCR Negative (Negative); Neisserai gonorrhoeae by PCR Negative (Negative); Probe Check PASS; Sample Adequacy Control PASS; Specimen Processing Control PASS
== END ==
PROVIDERS: Visit Provider Obstetrics & Gynecology
DX: O09.90 Supervision of high risk pregnancy, unspecified, unspecified trimester (principal); Z3A.00 Weeks of gestation of pregnancy not specified
CPT/HCPCS: 87086; 87491; 87591

== ENCOUNTER → 2019-05-26 15:18 | Outpatient (CLI) | payer OTHER, SELFPAY ==
[2019-05-22 17:43] VITALS: BMI 24.1
--- NOTE | 2019-05-26 15:26 | EKG12_ITS ---
Test Reason : PREOP Blood Pressure : / mmHG Vent. Rate : 057 BPM Atrial Rate : 057 BPM P-R Int : 146 ms QRS Dur : 080 ms QT Int : 408 ms P-R-T Axes : 045 019 025 degrees QTc Int : 397 ms Sinus bradycardia with sinus arrhythmia Septal infarct , age undetermined , cannot be excluded Abnormal ECG Confirmed by RICO SALINAS, JAVON ([id number]), design editor MONET VANCE ([id number]) on 05/29/2019 10:29:16 AM Referred By: Chiquita Vela Confirmed By:JAVON GÓMEZ MD
[2019-05-26 17:27] LABS: Absolute Lymphocyte Count 1.58 X10^3/uL (0.83-4.51); Absolute Neutrophil Count 6.8 X10^3/uL (2.0-7.7); Basophil# 0.03 X10^3/uL; Basophil% 0.3 % (0-1); Eosinophil# 0.09 X10^3/uL; Hemoglobin 11.9 g/dL (12.0-15.0); Lymphocyte # 1.58 X10^3/ul (4.0); Lymphocyte % 17.4 % (19-41); Mean Corpuscular Hgb 31.9 pg (27.0-32.0); Mean Corpuscular Volume 93.8 fL (81-99); Mean Platelet Vol. 11.7 fl (6.2-12.0); Monocyte# 0.57 X10^3/uL; Monocyte% 6.3 % (0-10); NRBC Flagged by Analyzer 0 % (0-5); Neutrophil # 6.79 X10^3/uL (2.7-7.7); Neutrophil % 74.7 % (47-70); Platelet Count 149 K/mm3 (150-450); RBC Distribution Width CV 12.7 % (11.6-14.6); RBC Distribution Width SD 43.7 fl (35.1-43.9); Red Blood Count 3.73 M/mm3 (4.2-5.4); White Blood Count 9.1 K/mm3 (4.4-11.0)
[2019-05-29 10:33] LABS: HIV - WCH Non-Reactive (Nonreactive); Hepatitis B Surface Antigen Non-Reactive (Nonreactive); Rubella IgG 199.5 IU/mL
[2019-06-01 02:55] LABS: Rapid Plasmin Reagin (RPR) NONREACTIVE (NONREACTIVE)
== END ==
PROVIDERS: Referring Provider Obstetrics & Gynecology; Visit Provider Obstetrics & Gynecology
DX: O09.521 Supervision of elderly multigravida, first trimester (principal); O09.90 Supervision of high risk pregnancy, unspecified, unspecified trimester; O10.919 Unspecified pre-existing hypertension complicating pregnancy, unspecified trimester; Z3A.00 Weeks of gestation of pregnancy not specified
CPT/HCPCS: 36415; 85025; 86592; 86703; 86762; 86850; 86900; 86901; 87340; 93005

== ENCOUNTER → 2019-10-02 13:54 | Outpatient (CLI) | payer SELFPAY ==
[2019-10-02 13:33] VITALS: BMI 24.3
[2019-10-02 15:21] LABS: Absolute Lymphocyte Count 1.58 X10^3/uL (0.83-4.51); Absolute Neutrophil Count 10.3 X10^3/uL (2.0-7.7); Basophil# 0.05 X10^3/uL; Basophil% 0.4 % (0-1); Eosinophils% 1.5 % (0-5); Hematocrit 32.6 % (37-47); Hemoglobin 10.9 g/dL (12.0-15.0); Lymphocyte # 1.58 X10^3/ul (4.0); Lymphocyte % 12.1 % (19-41); Mean Corp Hgb Conc 33.4 g/dL (32-36); Mean Corpuscular Hgb 33.1 pg (27.0-32.0); Mean Corpuscular Volume 99.1 fL (81-99); Mean Platelet Vol. 12.1 fl (6.2-12.0); Monocyte# 0.76 X10^3/uL; Monocyte% 5.8 % (0-10); NRBC Flagged by Analyzer 0 % (0-5); Neutrophil % 79.1 % (47-70); Platelet Count 133 K/mm3 (150-450); RBC Distribution Width CV 13.2 % (11.6-14.6); RBC Distribution Width SD 47.5 fl (35.1-43.9); Red Blood Count 3.29 M/mm3 (4.2-5.4)
[2019-10-02 15:40] LABS: Glucose Challenge Gest 1H 50g 145 mg/dL (70-140)
== END ==
PROVIDERS: Referring Provider Obstetrics & Gynecology; Visit Provider Obstetrics & Gynecology
DX: Z34.92 Encounter for supervision of normal pregnancy, unspecified, second trimester (principal); Z3A.28 28 weeks gestation of pregnancy
CPT/HCPCS: 36415; 82950; 85025

== ENCOUNTER → 2019-10-05 08:17 | Outpatient (CLI) | payer OTHER, SELFPAY ==
[2019-10-02 13:33] VITALS: BMI 24.3
[2019-10-05 09:37] LABS: Glucose GTT-Gestation. Fasting 77 mg/dL (<105)
[2019-10-05 10:13] LABS: Glucose GTT-Gestational 1 Hr 144 mg/dL (<190)
[2019-10-05 11:54] LABS: Glucose GTT-Gestational 2 Hr 145 mg/dL (<165)
[2019-10-05 12:37] LABS: Glucose GTT-Gestational 3 Hr 52 L (<145)
== END ==
PROVIDERS: PCP Family Medicine; Referring Provider Nurse Practitioner Women's Health; Visit Provider Nurse Practitioner Women's Health
DX: O99.810 Abnormal glucose complicating pregnancy (principal)
CPT/HCPCS: 36415; 82951; 82952

== ENCOUNTER → 2019-11-07 08:04 | Outpatient (CLI) | payer OTHER, SELFPAY ==
[2019-10-30 13:52] VITALS: BMI 27.9
--- NOTE | 2019-11-07 08:07 | US_ITS ---
STUDY: SECOND AND THIRD TRIMESTER OBSTETRICAL ULTRASOUND - LIMITED REASON FOR EXAM: Female, 34 years old JORGE LMP: 03/20/2019 PRIOR ULTRASOUND: None. TECHNIQUE: Transabdominal TECHNICAL QUALITY: Adequate. FINDINGS: There is a single intrauterine fetus. The fetus is in a cephalic presentation. There is demonstrated cardiac activity with a heart rate of 134 bpm. There is a normal amniotic fluid volume. The largest amniotic fluid pocket measures 6.1 x 6.5 cm. The amniotic fluid index (JORGE) is 20.07 cm. The placenta is anterior in location and is not low lying. There are Grade 1 placental changes. The cervix measures 3.3 cm in length. age by LMP: 31 weeks, 1 day. MANJU by LMP 12/25/2019 US/OB Limited (No Biometrics) IMPRESSION: Single live intrauterine at 33 weeks, 1 day by LMP. Heart rate of 134 bpm. Limited study does not show any suspicious sonographic findings Electronically Signed: Balwinder Freeman MD at 9:12 EDT , Service support ,
== END ==
PROVIDERS: PCP Family Medicine; Referring Provider Obstetrics & Gynecology; Visit Provider Obstetrics & Gynecology
DX: O09.893 Supervision of other high risk pregnancies, third trimester (principal); Z3A.33 33 weeks gestation of pregnancy
CPT/HCPCS: 76815

== ENCOUNTER → 2019-11-13 14:38 | Outpatient (CLI) | payer OTHER, SELFPAY ==
[2019-10-30 13:52] VITALS: BMI 27.9
[2019-11-13 13:51] VITALS: BMI 24.3
--- NOTE | 2019-11-13 14:39 | US_ITS ---
STUDY: SECOND AND THIRD TRIMESTER OBSTETRICAL ULTRASOUND - LIMITED REASON FOR EXAM: Female, 34 years old . JORGE. LMP: March 20, 2019. PRIOR ULTRASOUND: November 07, 2019. TECHNIQUE: Transabdominal TECHNICAL QUALITY: Adequate. FINDINGS: There is a single intrauterine fetus. The fetus is in a cephalic presentation. There is demonstrated cardiac activity with a heart rate of 142 bpm. There is a normal amniotic fluid volume. The largest amniotic fluid pocket measures 6.2 cm. The amniotic fluid index (JORGE) is 14.7 cm. The placenta is anterior in location and is not low lying. There are Grade 1 placental changes. The cervix measures 3.37 cm in length. Age by LMP: 34 weeks, 0 days. MANJU by LMP: December 23, 2019.. US/OB Limited (No Biometrics) IMPRESSION: 1. JORGE of 14.7 cm. 2. Live single intrauterine in a vertex presentation. 3. Anterior grade 1 placenta. 4. Closed cervix. Electronically Signed: Allan Montiel DO at 23:26 EDT Tel [phone], Service support ,
[2019-11-13 16:04] LABS: Absolute Lymphocyte Count 1.26 X10^3/uL (0.83-4.51); Absolute Neutrophil Count 9.6 X10^3/uL (2.0-7.7); Basophil# 0.03 X10^3/uL; Basophil% 0.3 % (0-1); Eosinophil# 0.16 X10^3/uL; Eosinophils% 1.3 % (0-5); Hemoglobin 11.3 g/dL (12.0-15.0); Lymphocyte # 1.26 X10^3/ul (4.0); Lymphocyte % 10.5 % (19-41); Mean Corp Hgb Conc 33.2 g/dL (32-36); Mean Corpuscular Hgb 34.3 pg (27.0-32.0); Mean Corpuscular Volume 103.3 fL (81-99); Mean Platelet Vol. 12.4 fl (6.2-12.0); Monocyte% 5.8 % (0-10); NRBC Flagged by Analyzer 0 % (0-5); Neutrophil # 9.63 X10^3/uL (2.7-7.7); Neutrophil % 80.3 % (47-70); Platelet Count 123 K/mm3 (150-450); RBC Distribution Width SD 52.5 fl (35.1-43.9); Red Blood Count 3.29 M/mm3 (4.2-5.4)
[2019-11-13 16:41] LABS: ALB/GLOB Ratio 0.8 RATIO (0.9-2.4); AST(SGOT) 19 U/L (15-37); Alanine Aminotransfer ALT/SGPT 30 U/L (13-56); Albumin, Serum 2.8 g/dL (3.2-5.0); Alkaline Phosphatase 101 U/L (45-117); Anion Gap 6 (5-15); BUN 6 mg/dL (7-18); BUN/Creat Ratio 9.4 RATIO (10-20); Calcium,Total 8.8 mg/dL (8.5-10.1); Chloride 106 mmol/L (98-107); Creatinine, Serum 0.64 mg/dL (0.55-1.02); EST Glomerular Filtration Rate 112 mL/min (>60); Est Glom Filt Rate - Afr Amer 135 mL/min (>60); Globulin 3.4 g/dL (2.2-4.2); Glucose 99 mg/dL (74-106); Potassium 3.5 mmol/L (3.5-5.1); Protein, Total 6.2 g/dL (6.4-8.2); Sodium Level 137 mmol/L (136-145)
[2019-11-13 18:45] LABS: Creatinine, Urine (random) < 13.00 mg/dL (NO RANGE EST.); Protein, Urine (Random) < 6.0 mg/dL (<11.9)
== END ==
PROVIDERS: PCP Family Medicine; Referring Provider Obstetrics & Gynecology; Visit Provider Obstetrics & Gynecology
DX: O10.919 Unspecified pre-existing hypertension complicating pregnancy, unspecified trimester (principal); O40.9XX0 Polyhydramnios, unspecified trimester, not applicable or unspecified; Z3A.00 Weeks of gestation of pregnancy not specified
CPT/HCPCS: 36415; 76815; 80053; 82570; 84156; 85025

== ENCOUNTER → 2019-11-21 07:59 | Outpatient (CLI) | payer OTHER, SELFPAY ==
[2019-10-30 13:52] VITALS: BMI 27.9
[2019-11-13 13:51] VITALS: BMI 24.3
--- NOTE | 2019-11-21 08:02 | US_ITS ---
STUDY: SECOND AND THIRD TRIMESTER OBSTETRICAL ULTRASOUND - LIMITED REASON FOR EXAM: Female, 34 years old JORGE -- CHRONIC HYPERTENSION LMP: March 20, 2019. PRIOR ULTRASOUND: November 13, 2019 TECHNIQUE: Transabdominal TECHNICAL QUALITY: Adequate. FINDINGS: There is a single intrauterine fetus. The fetus is in a cephalic presentation. There is demonstrated cardiac activity with a heart rate of 145 bpm. There is a normal amniotic fluid volume. The largest amniotic fluid pocket measures 6 cm x 6.1 cm. The amniotic fluid index (JORGE) is 17.34 cm. The placenta is anterior in location and is not low lying. There are Grade 1 placental changes. The cervix measures 3.9 cm in length. US/OB Limited (No Biometrics) IMPRESSION: Normal amniotic fluid. Electronically Signed: David Delacruz, at 12:31 EDT , Service support ,
== END ==
PROVIDERS: PCP Family Medicine; Referring Provider Obstetrics & Gynecology; Visit Provider Obstetrics & Gynecology
DX: O10.92 Unspecified pre-existing hypertension complicating childbirth (principal); Z3A.00 Weeks of gestation of pregnancy not specified
CPT/HCPCS: 76815

== ENCOUNTER → 2019-11-27 15:34 | Outpatient (CLI) | payer OTHER, SELFPAY ==
[2019-10-30 13:52] VITALS: BMI 27.9
[2019-11-27 13:57] VITALS: BMI 24.3
--- NOTE | 2019-11-27 15:34 | US_ITS ---
STUDY: SECOND AND THIRD TRIMESTER OBSTETRICAL ULTRASOUND REASON FOR EXAM: Female, 34 years old JORGE GROWTH LMP: TECHNIQUE: Transabdominal TECHNICAL QUALITY: Adequate. PRIOR ULTRASOUND: None. FINDINGS: There is a single intrauterine fetus. The fetus is in a cephalic presentation. There is demonstrated cardiac activity with a heart rate of 128 bpm. There is a normal amniotic fluid volume. The largest amniotic fluid pocket measures 3.4 x 6.1 cm. The amniotic fluid index (JORGE) is 12.63 cm. The placenta is anterior There are Grade 1 placental changes. The cervix measures 3.3 cm in length. The bilateral adnexal regions are normal. BIOMETRY: BPD: 8.65 cm: 35 weeks, 0 days HC: 32.72 cm: 37 weeks, 1 days AC: 33.58 cm: 37 weeks, 4 days FL: 7.3 cm: 37 weeks, 3 days CI: 0.79 FL/BPD: 0.84 FL/HC: FL/AC: 0.22 HC/AC: 0.97 age by current US: 36 weeks, 6 days. MANJU by current US: December 19, 2019. Estimated weight: 3119 grams, +/- 455 grams, 80 %. age by prior US: weeks, days. MANJU by prior US: . Age by LMP: 36 weeks, 0 days. MANJU by LMP: December 25, 2019. ANATOMY: Not studied at this time US/OB Limited With Biometrics IMPRESSION: Viable intrauterine gestation approximately 36-37 weeks gestational age Amniotic fluid index 12.63 cm Electronically Signed: Param Galvan MD at 19:40 EDT , Service support ,
== END ==
PROVIDERS: PCP Family Medicine; Referring Provider Obstetrics & Gynecology; Visit Provider Obstetrics & Gynecology
DX: O10.919 Unspecified pre-existing hypertension complicating pregnancy, unspecified trimester (principal); Z3A.37 37 weeks gestation of pregnancy
CPT/HCPCS: 76816; 87081

== ENCOUNTER → 2019-12-04 13:03 | Outpatient (CLI) | payer OTHER, SELFPAY ==
[2019-10-30 13:52] VITALS: BMI 27.9
[2019-11-27 13:57] VITALS: BMI 24.3
--- NOTE | 2019-12-04 13:09 | US_ITS ---
STUDY: SECOND AND THIRD TRIMESTER OBSTETRICAL ULTRASOUND-Limited REASON FOR EXAM: Female, 34 years old af LMP: Unknown. TECHNIQUE: Transabdominal TECHNICAL QUALITY: Adequate. PRIOR ULTRASOUND: 11/27/2019 FINDINGS: There is a single intrauterine fetus. The fetus is in a cephalic presentation. There is demonstrated cardiac activity with a heart rate of 152 bpm. There is a normal amniotic fluid volume. The largest amniotic fluid pocket measures 4.1 cm. The amniotic fluid index (JORGE) is 13.4 cm. The placenta is anterior in location and is not low lying. There are Grade 2 placental changes. The cervix was not visualized. age by current US: 37 weeks, 0 days. MANJU by current US: 12/25/2019. age by prior US: 37 weeks, 6 days. MANJU by prior US: 12/19/2019. US/OB Limited (No Biometrics) IMPRESSION: Single live intrauterine at 37 weeks, 0 days by current ultrasound with MANJU of 12/25/2019. JORGE total 13.4 with largest pocket measuring 4.1 cm. This represents a slight increase since the previous study where the JORGE measured 12.63. Electronically Signed: Balwinder Freeman MD at 8:40 EDT , Service support ,
== END ==
PROVIDERS: PCP Family Medicine; Referring Provider Nurse Practitioner Women's Health; Visit Provider Nurse Practitioner Women's Health
DX: O10.919 Unspecified pre-existing hypertension complicating pregnancy, unspecified trimester (principal); Z3A.00 Weeks of gestation of pregnancy not specified
CPT/HCPCS: 76815

== ENCOUNTER → 2019-12-05 10:14 | Outpatient (CLI) | payer OTHER, SELFPAY ==
[2019-12-04 13:57] VITALS: BMI 24.3
== END ==
PROVIDERS: PCP Family Medicine; Referring Provider Obstetrics & Gynecology; Visit Provider Obstetrics & Gynecology
DX: Z11.59 Encounter for screening for other viral diseases (principal)
CPT/HCPCS: 87635; G2023; U0003

== ENCOUNTER 2019-12-11 19:00 | Inpatient (IN) | payer OTHER, SELFPAY ==
[2019-12-04 13:57] VITALS: BMI 24.3
--- NOTE | 2019-12-11 08:07 | HP.PCM_ITS ---
- Problem List (1) Abnormal glucose tolerance in Status: Acute Comment: Normal 3hr GTT (2) Advanced maternal age during Status: Acute Comment: low risk genetic screening, testing planned. (3) Anemia affecting Status: Acute Qualifiers: Comment: iron, repeat CBC 36 weeks (4) Status: Acute Qualifiers: Comment: declines carrier. NIPT low risk.declines afp screening. anatomy reviewed. (5) Supervision of high-risk Status: Acute Qualifiers: Comment: PRR MANJU 12/25/19 surprise PC Viviane Ciro (6) Chronic hypertension affecting Status: Chronic Comment: sees [facility]. procardia XL 90mg daily. baseline labs, ekg normal on repeat. plan weekly nsts and madhu after 32 weeks, growth us q 4 weeks after 28 weeks, daily kick counts and plan delivery by 38 weeks. History and Physical Date of Admission: 12/11/19 Intake Vital Signs 12/04/19 Height 5 ft 11 in 12/04/19 Weight: 210 lb 6 oz 12/04/19 BMI 29.3 12/04/19 BP 120/70 Intake Visit Reasons: est ob 37w / NST Data Integrity Consultant Required: No Accompanied by: Self Allergies amlodipine [From [facility]] Allergy (Intermediate, Verified 12/04/19 13:50) legs swelling hctz Allergy (Intermediate, Uncoded 12/04/19 13:50) liver reaction Medications nifedipine 90 mg tablet,extended release 24 hr 90 mg PO QDAY 08/11/17 [History Confirmed 12/04/19] prenat.vits,panfilo,olm-kvjm-xcpch 1 tab PO QDAY 08/11/17 [History Confirmed 12/04/19] famotidine 20 mg tablet 20 mg PO DAILY 06/14/19 [History Confirmed 12/04/19] Last Menstral Period: 03/20/19 Zika: Zika virus screening: Negative : No PFSH PFSH Medical History Chronic hypertension affecting (Chronic) Gestational hypertension (Acute) High blood pressure (Resolved) Surgical History History of foot surgery (Acute) History of surgical removal of ganglion cyst (Acute) History of wisdom tooth extraction (Acute) Family History Mother Heart disease Social History (Updated 12/04/19 @ 16:[address] Chiquita Vela MD) Smoking Status: Never smoker second hand exposure: No alcohol intake: never substance use type: does not use caffeine: Yes what type of physical activity do you participate in: walking frequency: 1-2 times per week seatbelt use: always do you feel safe at home: Yes additional social history: Spouse Ciro-Michele Patient is a RN Pregancy History 2 Elective abortions Hx Para 1 Spontaneous abortions Hx # Term Pregnancies Ectopic pregnancies Hx # Pregnancies Multiple births # of living children 1 Past Pregnancies Del. Date Name GA/Weeks Outcome Route Bth Weight Gen Labor Lgth Anesthesia Del Locatn Provider FOB 03/08/18 Viviane 37 live - full term 6lb 2oz F emale epidural [facility] FRANCISCO Ciro Delivery Date: 03/08/18 On 03/16/18 @ 09:51 Gini [place]; cHTN HPI est ob 37w / NST : Details: HEATHER GRAYSON is a 34 year old presents for IOL secondary to cHTN well controlled in with reassuring testing. OB Visit MANJU Calculator Estimated Delivery Date Method Current WG Current Estimate 12/25/19 LMP (Certain) 37w 0d Expected Delivery Route/Plan Labor Preferences- labor support person: Ciro pain management options preferred: epidural cut cord/dad catch: yes : yes PP control planned: [] discussed possible routes of delivery and associated risks: [] special requests: [] Specific Issue/Plans flu vaccine: given tdap vaccine: yes rhogam: na LARC form signed: yes Problem list reviewed and updated with the most current plan of care details and appropriate orders placed. Relevant counseling for the gestational age provided. Continue routine care and follow up unless otherwise noted in visit notes/problem list details Initial Weight: 175 lb Date EGA Weight BP Urine Prot Glucose FHR FuHt Pres Dilation Effaced St Visit Note 06/19/19 13w 0d 176 lb (+16 oz) 110/60 Negative Negative 160 SM- no vb cramping 07/17/19 17w 0d 176 lb (+16 oz) 130/82 Negative Negative 161 MH-doing well. No Vb, LOF. MFM US at [place] 08/0907/19/19 17w 2d 176 lb (+16 oz) 108/76 149 MH-work in. Had fall down steps at home on side. No abdominal trauma. No bleeding. FHT easily found and audible movements. Reassured. 08/14/19 21w 0d 179 lb 8 oz (+4 lb 8 oz) 118/80 Negative Negative 145 SM- no vb lof cramping good fm. checking bps at home- nl 10/02/19 28w 0d 193 lb (+18 lb) 134/86 135 28 SM- no vb lof good fm no regular ctx cbc gct tdap 10/16/19 30w 0d 197 lb (+22 lb) 120/78 Negative Negative 141 30 MH-No VB, LOF. Good FM. MH-No VB, LOF. Good FM. RTO 2 wk and NST also 10/30/19 32w 0d 200 lb 4 oz (+25 lb 4 oz) 120/86 Negative Negative 11/07/19 33w 1d 200 lb 8 oz (+25 lb 8 oz) 112/72 Reactive NST 11/13/19 34w 0d 206 lb 2 oz (+31 lb 2 oz) 120/88 Negative Negative 11/21/19 35w 1d 206 lb 2 oz (+31 lb 2 oz) 124/86 Negative Negative 130 MH-reactive NST. Had GI symptoms yesterday. Better today. Denies Headache, VB, LOF. Good FM. 11/27/19 36w 0d 211 lb (+36 lb) 114/76 Negative Negative 130 36 Cephalic 2 SM- no vb lof good fm no regular ctx discussed IOL 38 weeks 12/04/19 37w 0d 210 lb 6 oz (+35 lb 6 oz) 120/70 Negative Negative 130 37 Cephalic 4 70 -1 SM- no vb lof good fm no regular ctx discussed IOL 38 weeks. membranes swept. ACOG First Trimester First Trimester: Desire for , Alcohol, Tobacco Cessation, Illicit/Recreational Drug/Substance Use, Intimate Partner Violence, Barriers to care, Unstable Housing, Communication Barriers, Environmental/Work Hazards, Anticipated Course of Care, Toxoplasmosis Precations, Use of Any medications, Sexual activity, Exercise, Dental Care, Sauna/Hot tub use, Seat Belt use, Childbirth classes/Hospital facilities, , Travel, Indications for US and Screening for Aneuploidy Second Trimester Second Trimester: Signs and Symptoms of Labor, Selecting a care provider, Reproductive Life Planning, Care Planning, Tobacco Cessation, Depression/Anxiety and Intimate Partner Violence Third Trimester Third Trimester: Pain Management Plans, Labor support person(s), Immediate Larc, Movement Monitoring and Infant Feeding Yes Nataliia astfeeding; discussed Trial of Labor after Counseling or discussed Circumcision preference Diagnostics Diagnostics Diagnostics Gest Glucose Tolerance MG/DL 10/05/19 Glucose 1 Hr 50 gm 145 mg/dL (70-140) H 10/02/19 Hgb 11.3 g/dL (12.0-15.0) L 11/13/19 Hct 34.0 % (37-47) L 11/13/19 Details: HIV: Urine Culture: Sequential Screen: NIPT Screen: ROS Const Reports system reviewed and no additional complaints, except as docu Card Reports system reviewed and no additional complaints, except as docu Resp Reports system reviewed and no additional complaints, except as docu GI Reports system reviewed and no additional complaints, except as docu, Reports nausea Reports system reviewed and no additional complaints, except as docu Musc Reports system reviewed and no additional complaints, except as docu Exam Const General: cooperative, healthy appearing, comfortable, anxious HENMT Head: normal to inspection Nose: external nose normal Face and sinus: normal facial exam Neck Neck: normal visual inspection, full ROM, no lymphadenopathy Thyroid: thyroid normal Chest Chest palpation & inspection: normal inspection of the chest Resp Effort & Inspection: normal respiratory effort GI Inspection: normal to inspection Palpation: soft, other (gravid uterus) Other: infant vertex and appropriate size for gestational age Other: Cervical Exam: Extrem General: pedal edema Office Procedures OB NST Non-Stress Test Indications for Monitoring: Yes hypertension Heart Rate Baseline: 130 Heart Rate Variability: moderate Movement: Present Heart Rate Accelerations: Present Decelerations: Absent Contractions: Absent Impression: Yes Reactive Non-Stress Test Category 1 Results POC Urinalysis 2 Dip (Clinic) Office Urine Glucose Negative Last Edit by Awilda Amaral on 12/04/19 13:57 Office Urine Protein Negative Last Edit by Awilda Amaral on 12/04/19 13:57 Assessment & Plan Problems 1. Chronic hypertension affecting O10.919 sees [facility]. procardia XL 90mg daily. baseline labs, ekg normal on repeat. plan weekly nsts and madhu after 32 weeks, growth us q 4 weeks after 28 weeks, daily kick counts and plan delivery by 38 weeks. 2. Anemia affecting in second trimester O99.012 iron, repeat CBC 36 weeks 3. Abnormal glucose tolerance in O99.810 Normal 3hr GTT 4. Advanced maternal age during low risk genetic screening, testing planned. 5. 35 weeks gestation of Z3A.35 declines carrier. NIPT low risk.declines afp screening. anatomy reviewed. 6. Supervision of high risk in second trimester O PRR MANJU 12/25/19 surprise PC Viviane Ciro Plan Patient presents IOL, plan management for with pitocin/AROM. Pain management: plans epidural. GBS negative. Management of any complications: cHTN plan 38 week IOL I have reviewed the [facility] and made any clinically relevant updates. Orders Orders: POC Urinalysis 2 Dip (Clinic) Today OB NST Today O10.919 Coding Level of Care Code OB Routine Diagnoses Chronic hypertension affecting O10.919 Anemia affecting in second trimester O99.012 ??Trimester: second trimester Abnormal glucose tolerance in O99.810 Advanced maternal age during 35 weeks gestation of Z3A.35 ??Weeks of gestation: 35 weeks Supervision of high risk in second trimester O ??Trimester: second trimester Additional Codes Non-Stress Test (83960)
[2019-12-11] MEDS: Lactated Ringers 1,000 ML 50 ML IV (20:15)
[2019-12-11 20:24] LABS: Absolute Lymphocyte Count 1.46 X10^3/uL (0.83-4.51); Absolute Neutrophil Count 8.9 X10^3/uL (2.0-7.7); Basophil# 0.04 X10^3/uL; Basophil% 0.3 % (0-1); Eosinophils% 1.7 % (0-5); Hematocrit 33.2 % (37-47); Hemoglobin 11.3 g/dL (12.0-15.0); Lymphocyte # 1.46 X10^3/ul (4.0); Lymphocyte % 12.6 % (19-41); Mean Corpuscular Hgb 33.9 pg (27.0-32.0); Mean Corpuscular Volume 99.7 fL (81-99); Mean Platelet Vol. 12.3 fl (6.2-12.0); Monocyte# 0.75 X10^3/uL; Monocyte% 6.5 % (0-10); NRBC Flagged by Analyzer 0 % (0-5); Neutrophil # 8.94 X10^3/uL (2.7-7.7); Neutrophil % 77.4 % (47-70); Platelet Count 113 K/mm3 (150-450); RBC Distribution Width CV 13.6 % (11.6-14.6); RBC Distribution Width SD 49.1 fl (35.1-43.9); Red Blood Count 3.33 M/mm3 (4.2-5.4); White Blood Count 11.6 K/mm3 (4.4-11.0)
[2019-12-11 20:29] VITALS: PULSE 88; TEMP 35.9; O2SAT 97
[2019-12-11 20:30] VITALS: BP 138/79; PULSE 82; TEMP 36.1; O2SAT 99
[2019-12-11 20:37] VITALS: BMI 29.7
[2019-12-11] MEDS: Mag Hydrox/Al Hydrox/Simeth 30 ML UDC PO (22:24)
[2019-12-11] MEDS: Oxytocin 30 units/NS 500 ml 30 UNITS/500 ML IV.SOLN IV (23:41)
[2019-12-11 23:48] VITALS: BP 127/76; PULSE 75; TEMP 36.8
[2019-12-12] VITALS (70 sets, daily range): BP systolic 96–154; BP diastolic 54–84; PULSE 63–111; RESP 14–16; TEMP 36.5–37.5; O2SAT 83–100
[2019-12-12] MEDS: Mag Hydrox/Al Hydrox/Simeth 30 ML UDC PO (03:25)
[2019-12-12] MEDS: Lactated Ringers 500 ML 999 ML IV ×2 (06:31→08:25)
[2019-12-12] MEDS: fentaNYL-bupivacaine (epidural) 100 ML BAG EPIDURAL (07:25)
[2019-12-12] MEDS: Amnioinfusion- 0.9% NS 1,000 ML IV.SOLN. 999 ML INTRA-UTER (08:05)
[2019-12-12] MEDS: Lactated Ringers 1,000 ML 200 ML IV (08:52)
[2019-12-12] MEDS: Oxytocin 30 units/NS 500 ml 30 UNITS/500 ML IV.SOLN 334 UNITS IV (09:44)
--- NOTE | 2019-12-12 10:08 | PCM.OPRPT ---
Problem List (1) Abnormal glucose tolerance in Status: Acute Comment: Normal 3hr GTT (2) Advanced maternal age during Status: Acute Comment: low risk genetic screening, testing planned. (3) Anemia affecting Status: Acute Qualifiers: Comment: iron, repeat CBC 36 weeks (4) Status: Acute Qualifiers: Comment: declines carrier. NIPT low risk.declines afp screening. anatomy reviewed. (5) Supervision of high-risk Status: Acute Qualifiers: Comment: PRR MANJU 12/25/19 surprise PC Viviane Ciro (6) Chronic hypertension affecting Status: Chronic Comment: sees [facility]. procardia XL 90mg daily. baseline labs, ekg normal on repeat. plan weekly nsts and madhu after 32 weeks, growth us q 4 weeks after 28 weeks, daily kick counts and plan delivery by 38 weeks. Vaginal Delivery Maternal Presentation: Medically Indicated Induction iol chtn Method of Induction: Pitocin Amniotic Membrane Rupture Type: Artificial Amniotic Fluid Description: Clear Final MANJU: 12/25/19 Gestational age: 38 Weeks and 1 Days Date of Procedure: 12/12/19 Pre-Operative Diagnosis: iol chtn Post-Operative Diagnosis: same Surgery/ Procedure Performed: Spontaneous Vaginal Delivery Type of Anesthesia: Epidural Description of Procedure: Patient began pushing and delivered the head in the ROP presentation. The head was delivered atraumatically [and a loose nuchal cord ?1 was identified and easily reduced over the 's head]. The anterior and posterior shoulders delivered without complication followed by the rest of the and the infant was placed on the maternal abdomen. Delayed cord clamping was employed for approximately 60 seconds. Cord was clamped and cut and gentle traction was applied to the cord and the placenta delivered spontaneously immediately following it was noted to be intact with three-vessel cord. The perineum and vagina were inspected and noted to have a small first-degree perineal laceration that was repaired in the usual fashion with 3-0 Vicryl Rapide. EBL was 200 cc. Patient and infant tolerated delivery well. Presentation: ROP Placental Delivery Description: Spontaneous Placenta Disposition: [facility] Cord Vessel Description: 3 Vessels Cord Entanglement: Around neck x 1, loose Estimated Blood Loss: 200 Infant A gender: Male Episiotomy Description: None Laceration: Perineal Extension/lac, 1st degree Medications given after delivery: IV Pitocin Complications: None Multi Select Codes - Urinary/Genital Urinary/Genital CPT Codes: 87705 Vaginal Delivery [facility]
--- NOTE | 2019-12-12 10:15 | DCINST_ITS ---
Discharge Diet: No Restrictions Discharge Activity: Return to Normal Activity, May not drive while taking narcotic pain medications., May Shower May resume sexual activity in: 4-6 weeks Call your doctor if your incision/area has: Continuous Slow Oozing, Sudden Increased Bleeding, Increased Pain/ Swelling, Increased Redness, Foul Smelling Discharge Additional Instructions: If you experience any of the following, contact your healthcare provider. * Bleeding that soaks a pad every hour for 2 hours * Fever 100.4 or higher * Unrelieved incision or abdominal pain * Swelling, redness, discharge or bleeding from your incision or episiotomy site * Your incision begins to separate * Problems urinating (including inability to urinate or burning while urinating). * Visual changes * Severe headache * Flu-like symptoms * Pain or redness in one of both of your breasts * Pain, warmth, tenderness or swelling in your legs, especially the calf area * Frequent nausea and vomiting * Symptoms of depression or anxiety If you experience any of the following, call 911 or go to the nearest Emergency Room. * Chest pain * Problems breathing * Seizure activity * Partial or complete paralysis of a body part, slurred speech, weakness or drooping of the face, or a sudden inability to walk or hold your balance Allergies/Adverse Reactions: Allergies amlodipine [From [facility]] Allergy (Intermediate, Verified 12/11/19 20:51) legs swelling hctz Allergy (Intermediate, Uncoded 12/11/19 20:51) liver reaction Medications to take at Discharge nifedipine 90 mg tablet,extended release 24 hr 90 mg PO QDAY 08/11/17 prenat.vits,panfilo,wez-rvsd-yrtbc 1 tab PO QDAY 08/11/17 famotidine 20 mg tablet 20 mg PO DAILY 06/14/19 Please Follow Up With: Chiquita Vela MD - [phone] When: Call to make an appointment with your doctor in 6 weeks. If you had elevated Blood pressure or 4th degree laceration you will need to be seen in 2 weeks. Primary Care Physician: Rae Cook MD [Primary Care Provider] - Test Results: Test results from this visit will be discussed in further detail at your follow- up appointment, if applicable.
--- NOTE | 2019-12-12 10:15 | PCM.DCVAG ---
Discharge Diet: No Restrictions Discharge Activity: Return to Normal Activity, May not drive while taking narcotic pain medications., May Shower May resume sexual activity in: 4-6 weeks Call your doctor if your incision/area has: Continuous Slow Oozing, Sudden Increased Bleeding, Increased Pain/ Swelling, Increased Redness, Foul Smelling Discharge Additional Instructions: If you experience any of the following, contact your healthcare provider. Bleeding that soaks a pad every hour for 2 hours Fever 100.4 or higher Unrelieved incision or abdominal pain Swelling, redness, discharge or bleeding from your incision or episiotomy site Your incision begins to separate Problems urinating (including inability to urinate or burning while urinating). Visual changes Severe headache Flu-like symptoms Pain or redness in one of both of your breasts Pain, warmth, tenderness or swelling in your legs, especially the calf area Frequent nausea and vomiting Symptoms of depression or anxiety If you experience any of the following, call 911 or go to the nearest Emergency Room. Chest pain Problems breathing Seizure activity Partial or complete paralysis of a body part, slurred speech, weakness or drooping of the face, or a sudden inability to walk or hold your balance Allergies/Adverse Reactions: Allergies amlodipine [From [facility]] Allergy (Intermediate, Verified 12/11/19 20:51) legs swelling hctz Allergy (Intermediate, Uncoded 12/11/19 20:51) liver reaction Medications to take at Discharge nifedipine 90 mg tablet,extended release 24 hr 90 mg PO QDAY 08/11/17 prenat.vits,panfilo,ubg-pgbt-elbas 1 tab PO QDAY 08/11/17 famotidine 20 mg tablet 20 mg PO DAILY 06/14/19 Please Follow Up With: Chiquita Vela MD - [phone] When: Call to make an appointment with your doctor in 6 weeks. If you had elevated Blood pressure or 4th degree laceration you will need to be seen in 2 weeks. Primary Care Physician: Rae Cook MD [Primary Care Provider] - Test Results: Test results from this visit will be discussed in further detail at your follow-up appointment, if applicable.
[2019-12-12] MEDS: Prenatal Vits Tablet 1 TABLET PO (12:38)
[2019-12-12] MEDS: Naproxen 250 MG Tablet 500 MG PO ×2 (12:39→20:33)
[2019-12-12] MEDS: Acetaminophen 500 MG Tablet 1000 MG PO ×2 (15:42→23:43)
[2019-12-12] MEDS: NIFEdipine 90 MG Tablet PO (15:58)
[2019-12-13 03:15] VITALS: BP 108/56; PULSE 57; RESP 16; TEMP 37
[2019-12-13 03:16] VITALS: BP 108/56; PULSE 57
[2019-12-13] MEDS: Naproxen 250 MG Tablet 500 MG PO (05:41)
[2019-12-13 07:50] VITALS: BP 115/71; PULSE 82; RESP 18; TEMP 37
[2019-12-13] MEDS: Acetaminophen 500 MG Tablet 1000 MG PO (07:52)
[2019-12-13] MEDS: Senna/Docusate Sodium 1 Tablet PO (07:52)
[2019-12-13 07:55] VITALS: BP 115/71; PULSE 60
[2019-12-13 07:56] VITALS: PULSE 74; O2SAT 99
--- NOTE | 2019-12-13 11:04 | PCM.PN.OB ---
Subjective: doing well no complaints pain controlled no CP SOB N V ambulating well tolerating po lochia moderate, going well - Physical Exam Vitals/I&O's: Vital Signs Temp Pulse Resp BP Pulse Ox 98.6 F 74 18 115/71 99 12/13/19 07:50 12/13/19 07:56 12/13/19 07:50 12/13/19 07:55 12/13/19 07:56 Oxygen Delivery Method Room Air Weight: 213 lb 6.4 oz Body Mass Index (BMI) 29.7 Intake and Output for Last 24 Hours 12/11/19 12/12/19 12/13/19 23:59 23:59 23:59 Intake Total 2636.03 / 2636.03 Output Total 2150 / 2150 Balance 486.03 / 486.03 General: Alert, Oriented x3 Current Medications Acetaminophen (Tylenol) 1,000 mg PO Q8H PRN PRN PRN Reason: Pain Score 1-3/10 Last Admin: 12/13/19 07:52 Dose: 1,000 mg Documented by: Bisacodyl (Dulcolax) 10 mg RECTAL UD PRN PRN Reason: If no BM Dibucaine (Dibucaine) 1 applic TOPICAL TID PRN PRN; Protocol PRN Reason: Discomfort Famotidine (Pepcid) 20 mg PO DAILY JESSICA Hydrocortisone (Hytone) 1 applic TOPICAL TID PRN PRN; Protocol PRN Reason: Discomfort Methylergonovine Maleate (Methergine) 0.2 mg IM X1 PRN PRN Reason: Excess bleeding/uterine atony Naproxen (Naprosyn) 500 mg PO Q8H PRN PRN PRN Reason: Pain Score 1-3/10 Last Admin: 12/13/19 05:41 Dose: 500 mg Documented by: Nifedipine (Procardia Xl) 90 mg PO DAILY@1700 JESSICA Ondansetron HCl (Zofran) 4 mg IV Q4H PRN PRN PRN Reason: Nausea Oxycodone HCl (Oxyir) 5 - 10 mg PO Q4H PRN PRN PRN Reason: Pain Score 4-10/10 Multivit/Folic Acid/Iron (Prenatabs Fa) 1 tablet PO DAILY@1200 JESSICA Last Admin: 12/12/19 12:38 Dose: 1 tablet Documented by: Senna/Docusate Sodium (Senokot-S, Sujata-Colace) 1 - 2 tablet PO DAILY PRN PRN PRN Reason: Constipation Last Admin: 12/13/19 07:52 Dose: 2 tablet Documented by: Simethicone (Mylicon) 80 mg PO PCHS PRN PRN Reason: Indigestion/Stomach pain Sodium Chloride () 5 - 15 ml IV UD PRN PRN Reason: SALINE FLUSH Medical Necessity - Tobacco Use Smoking Status: Never smoker Assessment/Plan All Active Problems (Last Updated 12/13/19 @ 09:43 by Rowan Amaral) Abnormal glucose tolerance in (Acute) Anemia affecting (Acute) Advanced maternal age during (Acute) Supervision of high-risk (Acute) (Acute) screening encounter (Resolved) Anxiety during (Resolved) High blood pressure (Resolved) Hypertension affecting (Resolved) Oligohydramnios (Resolved) Polyhydramnios (Resolved) (Resolved) Supervision of high-risk (Resolved) Threatened premature labor (Resolved) s/p PPD # 1 1. routine post delivery care 2. breast feeding- support given 3. rh positive 4. rubella immune
== END 2019-12-13 12:40 | disposition home or self-care (01) | DRG 807 ==
PROVIDERS: Admitting Provider Obstetrics & Gynecology; PCP Family Medicine; Referring Provider Obstetrics & Gynecology; Visit Provider Obstetrics & Gynecology
DX: O10.92 Unspecified pre-existing hypertension complicating childbirth (principal); Z37.0 Single live birth; O69.81X0 Labor and delivery complicated by cord around neck, without compression, not applicable or unspecified; O70.0 First degree perineal laceration during delivery; Z3A.38 38 weeks gestation of pregnancy; O99.02 Anemia complicating childbirth; D64.9 Anemia, unspecified
CPT/HCPCS: 59025; 59050; 85025; 86850; 86900; 86901; 99218; J7030; J7120; G0378

== ENCOUNTER → 2023-04-26 | Outpatient (CLI) | payer OTHER, SELFPAY ==
[2023-04-30 10:08] LABS: HPV APTIMA, High Risk Negative (Negative)
== END | disposition home or self-care (01) ==
LOC: LABSPEC 13:07
PROVIDERS: Referring Provider Obstetrics & Gynecology; Visit Provider Obstetrics & Gynecology
DX: Z12.4 Encounter for screening for malignant neoplasm of cervix (principal)
CPT/HCPCS: 87624; 88175; G0145

== ENCOUNTER → 2023-04-29 | Outpatient (CLI) | payer OTHER, SELFPAY ==
--- NOTE | 2023-04-29 09:31 | US_ITS ---
STUDY: ULTRASOUND BREAST - RIGHT REASON FOR EXAM: Female, 38 years old. Nipple discharge in the right breast. TECHNIQUE: Axial and longitudinal images of the RIGHT breast were performed with a high resolution ultrasound transducer. # OF IMAGES: 19 COMPARISON: Comparison is made with prior mammogram done earlier today. FINDINGS: RIGHT Breast: The retroareolar region of the right breast was examined with ultrasound. Mild retroareolar ductal dilatation. US/Breast Limited Unilateral IMPRESSION: Mild degree of retroareolar ductal dilatation. ASSESSMENT CATEGORY: BIRADS Category 2: Benign. A letter regarding these results will be sent to the patient by the facility within 30 days. Electronically Signed: David Delacruz MD at 14:25 EST ,
--- NOTE | 2023-04-29 09:31 | BI_ITS ---
MAMMOGRAPHY - BILATERAL DIAGNOSTIC REASON FOR EXAM: Female, 38 years old. Right breast discharge. PERTINENT HISTORY: Aunt with breast cancer. TECHNIQUE: Digital bilateral breast maya (3D mammographic acquisition) in the CC and MLO projections. 2-D mediolateral oblique (MLO) and craniocaudad (CC) views of both breasts were obtained. CAD: Full Field Digital Mammography with Computer Added Detection was performed. COMPARISON: None. Baseline examination. FINDINGS: Breast Composition: The breasts are extremely dense, which lowers the sensitivity of mammography. There are no dominant masses or suspicious calcifications. No other significant abnormalities are identified. BI/DIAG MAMM W/CAD, BILAT IMPRESSION: Negative diagnostic mammogram. With the patient''s history of right breast discharge, correlation with ultrasound is recommended. ASSESSMENT CATEGORY: BIRADS Category 0: Incomplete. Need additional imaging evaluation. A letter regarding these results will be sent to the patient by the facility within 30 days. Approximately 10% of breast cancers are not detected by mammography. A normal mammogram should not delay biopsy of a clinically suspicious abnormality. Electronically Signed: David Delacruz MD at 10:11 [facility] [place] ,
== END | disposition home or self-care (01) ==
LOC: OPBI 09:30
PROVIDERS: Referring Provider Obstetrics & Gynecology; Visit Provider Obstetrics & Gynecology
DX: N64.3 Galactorrhea not associated with childbirth (principal)
CPT/HCPCS: 76642; 77062; 77066; G0279